=== PATIENT | male | born 1950 | race Caucasian/White ===

== ENCOUNTER 2019-06-23 17:45 | Emergency (ER) | payer OTHER, BC ==
[~2019-06-23] VITALS: Ht 180.3 cm; Wt 61.2 kg
[~2019-06-23 17:45] MED LIST: CLOP75TA PO; OXYC30TE PO
[2019-06-23 18:03] VITALS: BP 142/57
--- NOTE | 2019-06-23 18:09 | NUR ---
W/C ASSISTED , WAIT IN LOBBY.
--- NOTE | 2019-06-23 18:15 | NUR ---
BIB WHEELCHAIR TO CHAIR B
--- NOTE | 2019-06-23 18:43 | NUR ---
69/M BIB FAMILY, C/O LOWER BACK PAIN, X3 DAYS. PT DENIES TRAUMA/INJURY. DENIES N/V/D, CONSTIPATION OR DYSURIA. PT AWAKE AND ALERT, WHEELCHAIR ASSISTED, SKIN NORMAL WARM AND DRY, RR EVEN AND UNLABORED. HX CVA, CA RX PLAVIX; OXYCODONE (LAST 1 HR AGO), NORCO, VALIUM; WITHOUT RELIEF
[2019-06-23] MEDS ORDERED: fentaNYL 0.05 MG/ML VIAL IM ONE (19:45)
[2019-06-23 20:47] VITALS: BP 142/57
--- NOTE | 2019-06-23 20:48 | NUR ---
Patient discharged with v/s stable. Written and verbal after care instructions given and explained. Patient alert, oriented and verbalized understanding of instructions. Wheel Chair Assisted with to home. All questions addressed prior to discharge. ID band removed. Patient advised to follow up with PMD. Rx of norco 325 mg tab given. Patient educated on indication of medication including possible reaction and side effects. Opportunity to ask questions provided and answered.
== END 2019-06-23 20:48 | disposition home or self-care (01) ==
LOC: MED 17:45
DX: M54.9 Dorsalgia, unspecified (principal); G89.29 Other chronic pain; I10 Essential (primary) hypertension; Z86.73 Personal history of transient ischemic attack (TIA), and cerebral infarction without residual deficits; Z79.01 Long term (current) use of anticoagulants; Z79.891 Long term (current) use of opiate analgesic
CPT/HCPCS: 81002; 96372; 99283; J3010